=== PATIENT | female | born 2005 | race Caucasian/White ===

== ENCOUNTER 2025-01-27 16:46 | Emergency (ER) | payer SELFPAY ==
[2025-01-27 17:07] VITALS: BP 143/91; PULSE 69; RESP 16; TEMP 36.8; O2SAT 98
--- OUTSIDE RECORDS SUMMARY | 2025-01-27 17:17 | XMS_ITS | Encounter Summary ---
Author Organization [facility] Address [address] [place] [address] Care Team Providers Care Ball Maker Name Role Phone Aby Almaguer MD Primary Care Provider +1- [phone] Encounter Details Date Type Department Care Team (Latest Contact Info) Description 2004 Outpatient Historical [facility] Medicine [address] [phone] Maria Fernanda Lundberg MD [address] [place] [phone] EYAL HIP DEFORMITY NEC (Primary Dx) Social History Tobacco Use Types Packs/Day Years Used Date Smoking Tobacco: Never Assessed Comments Unknown Sex and Gender Information Value Date Recorded Sex Assigned at Not on file Legal Sex Female 3:16 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
--- OUTSIDE RECORDS SUMMARY | 2025-01-27 17:17 | XMS_ITS | Encounter Summary ---
Author Organization [facility] Address [address] [place] [address] Care Team Providers Care Discharge Planner Name Role Phone Aby Almaguer MD Primary Care Provider +1- [phone] Encounter Details Date Type Department Care Team (Latest Contact Info) Description 2004 Outpatient Historical [facility] Medicine [address] [address] Christian Cabral MD [address] [place] [phone] Routine child health exam (Primary Dx) Social History Tobacco Use Types Packs/Day Years Used Date Smoking Tobacco: Never Assessed Comments Unknown Sex and Gender Information Value Date Recorded Sex Assigned at Not on file Legal Sex Female 3:16 AM 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
--- OUTSIDE RECORDS SUMMARY | 2025-01-27 17:17 | XMS_ITS | Encounter Summary ---
Author Organization [facility] Address [address] [place] [address] Care Team Providers Care Recycle Coordinator Name Role Phone Aby Almaguer MD Primary Care Provider +1- [phone] Encounter Details Date Type Department Care Team (Latest Contact Info) Description 2004 Outpatient Historical [facility] Medicine [place] [address] [address] Christian Cabral MD [address] [place] [phone] DIARRHEA NOS (Primary Dx) Social History Tobacco Use Types Packs/Day Years Used Date Smoking Tobacco: Never Assessed Comments Unknown Sex and Gender Information Value Date Recorded Sex Assigned at Not on file Legal Sex Female 3:16 AM 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
--- OUTSIDE RECORDS SUMMARY | 2025-01-27 17:17 | XMS_ITS | Encounter Summary ---
Author Organization [facility] Address [address] [place] [address] Care Team Providers Care Rip Sawyer Name Role Phone Aby Almaguer MD Primary Care Provider +1- [phone] Encounter Details Date Type Department Care Team (Latest Contact Info) Description 08/07/2005 Outpatient Historical [facility] Family Medicine [address] [address] Kae Chirinos MD [facility] [place] [address] Unspecified Otitis Media (Primary Dx) Social History Tobacco Use Types Packs/Day Years Used Date Smoking Tobacco: Never Assessed Comments Unknown Sex and Gender Information Value Date Recorded Sex Assigned at Not on file Legal Sex Female 3:16 AM MIDDLEWARE SOLUTIONS ARCHITECT Gender Identity Not on file Sexual Orientation Not on file documented as of this encounter Plan of Treatment Not on file documented as of this encounter Visit Diagnoses Diagnosis Unspecified otitis media- Primary documented in this encounter Care Teams Rip Sawyer Relationship Specialty Start Date End Date Aby Almaguer MD PCP - General Family Practice 05/04/14 documented as of this encounter
--- OUTSIDE RECORDS SUMMARY | 2025-01-27 17:17 | XMS_ITS | Encounter Summary ---
Author Organization [facility] Address [address] [place] [address] Care Team Providers Care A And P Technician Name Role Phone Aby Almaguer MD Primary Care Provider +1- [phone] Encounter Details Date Type Department Care Team (Latest Contact Info) Description 2004 Outpatient Historical [facility] Medicine [address] [phone] Maria Fernanda Lundberg MD [address] [place] [phone] OTITIS MEDIA NOS (Primary Dx); NASAL & SINUS DIS NEC Social History Tobacco Use Types Packs/Day Years Used Date Smoking Tobacco: Never Assessed Comments Unknown Sex and Gender Information Value Date Recorded Sex Assigned at Not on file Legal Sex Female 3:16 AM HUMAN SERVICES SUPERVISOR Gender Identity Not on file Sexual Orientation Not on file documented as of this encounter Plan of Treatment Not on file documented as of this encounter Visit Diagnoses Diagnosis Unspecified otitis media- Primary Nasal/sinus dis NEC Other diseases of nasal cavity and sinuses documented in this encounter Care Teams A And P Technician Relationship Specialty Start Date End Date Aby Almaguer MD PCP - General Family Practice 05/04/14 documented as of this encounter
--- OUTSIDE RECORDS SUMMARY | 2025-01-27 17:17 | XMS_ITS | Encounter Summary ---
Author Organization [facility] Address [address] [place] [address] Care Team Providers Care Bleach Machine Operator Name Role Phone Aby Almaguer MD Primary Care Provider +1- [phone] Encounter Details Date Type Department Care Team (Late st Contact Info) Description 05/22/2007 Outpatient Historical [facility] Ear, Nose and Throat [address] [place] [phone] Edmundo Walker MD NO ADDRESS ON FILE Social History Tobacco Use Types Packs/Day Years Used Date Smoking Tobacco: Never Assessed Comments Unknown Sex and Gender Information Value Date Recorded Sex Assigned at Not on file Legal Sex Female 3:16 AM DIRECTOR OF GROUP COUNSELING PROGRAM Gender Identity Not on file Sexual Orientation Not on file documented as of this encounter Plan of Treatment Not on file documented as of this encounter Visit Diagnoses Not on filedocumented in this encounter Care Teams Bleach Machine Operator Relationship Specialty Start Date End Date Aby Almaguer MD PCP - General Family Practice 05/04/14 documented as of this encounter
--- OUTSIDE RECORDS SUMMARY | 2025-01-27 17:17 | XMS_ITS | Encounter Summary ---
Author Organization [facility] Address [address] [place] [address] Care Team Providers Care Cartographic Designer Name Role Phone Aby Almaguer MD Primary Care Provider +1- [phone] Encounter Details Date Type Department Care Team (Latest Contact Info) Description 01/10/2005 Outpatient Historical [facility] Medicine [address] [phone] Maria Fernanda Lundberg MD [address] [place] [phone] Routine child health exam (Primary Dx) Social History Tobacco Use Types Packs/Day Years Used Date Smoking Tobacco: Never Assessed Comments Unknown Sex and Gender Information Value Date Recorded Sex Assigned at Not on file Legal Sex Female 3:16 AM INTENSIVE CARE MEDICINE SPECIALIST Gender Identity Not on file Sexual Orientation Not on file documented as of this encounter Plan of Treatment Not on file documented as of this encounter Visit Diagnoses Diagnosis Routine child health exam- Primary Routine infant or child health check documented in this encounter Care Teams Cartographic Designer Relationship Specialty Start Date End Date Aby Almaguer MD PCP - General Family Practice 05/04/14 documented as of this encounter
--- OUTSIDE RECORDS SUMMARY | 2025-01-27 17:17 | XMS_ITS | Encounter Summary ---
Author Organization [facility] Address [address] [place] [address] Care Team Providers Care Recovery Agent Name Role Phone Aby Almaguer MD Primary Care Provider +1- [phone] Encounter Details Date Type Department Care Team (Latest Contact Info) Description 2004 Outpatient Historical [facility] Medicine [address] [phone] Christian Cabral MD [address] [place] [phone] Routine child health exam (Primary Dx) Social History Tobacco Use Types Packs/Day Years Used Date Smoking Tobacco: Never Assessed Comments Unknown Sex and Gender Information Value Date Recorded Sex Assigned at Not on file Legal Sex Female 3:16 AM 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
--- OUTSIDE RECORDS SUMMARY | 2025-01-27 17:17 | XMS_ITS | Encounter Summary ---
Author Organization [facility] Address [address] [place] [address] Care Team Providers Care Carpenter Helper Maintenance Name Role Phone Aby Almaguer MD Primary Care Provider +1- [phone] Encounter Details Date Type Department Care Team (Latest Contact Info) Description 2004 Outpatient Historical [facility] Medicine [address] [phone] Maria Fernanda Lundberg MD [address] [place] [phone] Routine child health exam (Primary Dx) Social History Tobacco Use Types Packs/Day Years Used Date Smoking Tobacco: Never Assessed Comments Unknown Sex and Gender Information Value Date Recorded Sex Assigned at Not on file Legal Sex Female 3:16 AM LIFE SKILLS TEACHER Gender Identity Not on file Sexual Orientation Not on file documented as of this encounter Plan of Treatment Not on file documented as of this encounter Visit Diagnoses Diagnosis Routine child health exam- Primary Routine infant or child health check documented in this encounter Care Teams Carpenter Helper Maintenance Relationship Specialty Start Date End Date Aby Almaguer MD PCP - General Family Practice 05/04/14 documented as of this encounter
--- OUTSIDE RECORDS SUMMARY | 2025-01-27 17:17 | XMS_ITS | Encounter Summary ---
Author Organization [facility] Address [address] [place] [address] Care Team Providers Care Manager Plan Name Role Phone Aby Almaguer MD Primary Care Provider +1- [phone] Encounter Details Date Type Department Care Team (Latest Contact Info) Description [address] [facility] Services [address] [place] [phone] Maria Fernanda Lundberg MD [address] [place] [address] JOINT SYMPTOM NEC-PELVIS (Primary Dx) Social History Tobacco Use Types Packs/Day Years Used Date Smoking Tobacco: Never Assessed Comments Unknown Sex and Gender Information Value Date Recorded Sex Assigned at Not on file Legal Sex Female 3:16 AM SENIOR ENGINEERING MANAGER Gender Identity Not on file Sexual Orientation Not on file documented as of this encounter Plan of Treatment Not on file documented as of this encounter Visit Diagnoses Diagnosis Other symptoms referable to pelvic joint- Primary documented in this encounter Care Teams Manager Plan Relationship Specialty Start Date End Date Aby Almaguer MD PCP - General Family Practice 05/04/14 documented as of this encounter
--- OUTSIDE RECORDS SUMMARY | 2025-01-27 17:18 | XMS_ITS | Encounter Summary ---
Author Organization [facility] Address [address] [place] [address] Care Team Providers Care Client Strategist Name Role Phone Aby Almaguer MD Primary Care Provider +1- [phone] Encounter Details Date Type Department Care Team (Latest Contact Info) Description 03/03/2006 Outpatient Historical [facility] Family Medicine [address] [address] Julien Denton, GAMING MANAGER [address] [place] [address] Unspecified Otitis Media (Primary Dx) Social History Tobacco Use Types Packs/Day Years Used Date Smoking Tobacco: Never Assessed Comments Unknown Sex and Gender Information Value Date Recorded Sex Assigned at Not on file Legal Sex Female 3:16 AM PUMP HOUSE OPERATOR Gender Identity Not on file Sexual Orientation Not on file documented as of this encounter Plan of Treatment Not on file documented as of this encounter Visit Diagnoses Diagnosis Unspecified otitis media- Primary documented in this encounter Care Teams Client Strategist Relationship Specialty Start Date End Date Aby Almaguer MD PCP - General Family Practice 05/04/14 documented as of this encounter
--- OUTSIDE RECORDS SUMMARY | 2025-01-27 17:18 | XMS_ITS | Encounter Summary ---
Author Organization [facility] Address [address] [place] [address] Care Team Providers Care Foot Press Operator Name Role Phone Aby Almaguer MD Primary Care Provider +1- [phone] Encounter Details Date Type Department Care Team (Latest Contact Info) Description 04/04/2005 Outpatient Historical [facility] Medicine [address] [phone] Maria Fernanda Lundberg MD [address] [place] [phone] Routine child health exam (Primary Dx) Social History Tobacco Use Types Packs/Day Years Used Date Smoking Tobacco: Never Assessed Comments Unknown Sex and Gender Information Value Date Recorded Sex Assigned at Not on file Legal Sex Female 3:16 AM HAND SPLITTER Gender Identity Not on file Sexual Orientation Not on file documented as of this encounter Plan of Treatment Not on file documented as of this encounter Visit Diagnoses Diagnosis Routine child health exam- Primary Routine infant or child health check documented in this encounter Care Teams Foot Press Operator Relationship Specialty Start Date End Date Aby Almaguer MD PCP - General Family Practice 05/04/14 documented as of this encounter
--- OUTSIDE RECORDS SUMMARY | 2025-01-27 17:18 | XMS_ITS | Encounter Summary ---
Author Organization [facility] Address [address] [place] [address] Care Team Providers Care Air Moving Technician Name Role Phone Aby Almaguer MD Primary Care Provider +1- [phone] Encounter Details Date Type Department Care Team (Latest Contact Info) Description 04/25/2006 Outpatient Historical [facility] Ear, Nose and Throat [address] [place] [phone] Mohit Baires AU.D NO ADDRESS ON FILE Dysfunct Eustachian Tube (Primary Dx); Unspecified Conductive Hearing Loss Social History Tobacco Use Types Packs/Day Years Used Date Smoking Tobacco: Never Assessed Comments Unknown Sex and Gender Information Value Date Recorded Sex Assigned at Not on file Legal Sex Female 3:16 AM FORESTRY ENGINEER Gender Identity Not on file Sexual Orientation Not on file documented as of this encounter Plan of Treatment Not on file documented as of this encounter Visit Diagnoses Diagnosis Dysfunct eustachian tube- Primary Dysfunction of Eustachian tube Unspecified conductive hearing loss documented in this encounter Care Teams Air Moving Technician Relationship Specialty Start Date End Date Aby Almaguer MD PCP - General Family Practice 05/04/14 documented as of this encounter
--- OUTSIDE RECORDS SUMMARY | 2025-01-27 17:18 | XMS_ITS | Encounter Summary ---
Author Organization [facility] Address [address] [place] [address] Care Team Providers Care Mica Plate Layer Hand Name Role Phone Aby Almaguer MD Primary Care Provider +1- [phone] Encounter Details Date Type Department Care Team (Latest Contact Info) Description 2004 Outpatient Historical [facility] Medicine [address] [phone] Maria Fernanda Lundberg MD [address] [place] [phone] Routine child health exam (Primary Dx) Social History Tobacco Use Types Packs/Day Years Used Date Smoking Tobacco: Never Assessed Comments Unknown Sex and Gender Information Value Date Recorded Sex Assigned at Not on file 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
--- OUTSIDE RECORDS SUMMARY | 2025-01-27 17:18 | XMS_ITS | Encounter Summary ---
Author Organization [facility] Address [address] [place] [address] Care Team Providers Care Tortilla Maker Name Role Phone Aby Almaguer MD Primary Care Provider +1- [phone] Encounter Details Date Type Department Care Team (Late st Contact Info) Description 04/22/2007 Outpatient Historical [facility] Medicine [address] [address] Julien Denton, RELIGION INSTRUCTOR [address] [place] [address] Social History Tobacco Use Types Packs/Day Years Used Date Smoking Tobacco: Never Assessed Comments Unknown Sex and Gender Information Value Date Recorded Sex Assigned at Not on file Legal Sex Female 3:16 AM MINER Gender Identity Not on file Sexual Orientation Not on file documented as of this encounter Progress Notes * Julien Denton NP - 04/22/2007 12:00 AM CST Patient Name: Raquel Quintanilla DOS: 04/22/2007 : 2005 SUBJECTIVE: Raquel comes in for cold symptoms, cough, ear hurts. Nurses documentation noted. Review of systems, social history and chart review performed on health questionnaire. OBJECTIVE: HEENT: Head is normocephalic. TMs are clear and lucent bilaterally. Nasal passages are patent. Intraoral exam is pink and moist. Posterior oropharynx is within normal limits. NECK: Supple. Thyroid is not palpated. No cervical lymphadenopathy is noted. HEART: Regular rate and rhythm with no murmur. LUNGS: Clear to auscultation bilaterally. ABDOMEN: Soft, rounded and nontender to palpation. Bowel sounds are present. EXTREMITIES: Without defect. LABORATORY DATA: Negative rapid strep. ASSESSMENT: Viral syndrome. PLAN: Supportive care. Followup as needed. Julien Denton RN, POWER PLANT OPERATORS SUPERVISOR Maria Fernanda Lundberg M.D. [facility] Electronically Signed by Julien Denton RN 05/13/2007 14:31 , 8:24 A P, 580 Document #: [id number] cc: R documented in this encounter Plan of Treatment Not on file documented as of this encounter Visit Diagnoses Not on filedocumented in this encounter Care Teams Tortilla Maker Relationship Specialty Start Date End Date Aby Almaguer MD PCP - [facility] Family Practice 05/04/14 documented as of this encounter
--- OUTSIDE RECORDS SUMMARY | 2025-01-27 17:18 | XMS_ITS | Encounter Summary ---
Author Organization [facility] Address [address] [place] [address] Care Team Providers Care Well Site Drilling Engineer Name Role Phone Aby Almaguer MD Primary Care Provider +1- [phone] Encounter Details Date Type Department Care Team (Latest Contact Info) Description 04/25/2006 Outpatient [facility] Ear, Nose and Throat [address] [place] [phone] Edmundo Walker MD NO ADDRESS ON FILE Dysfunct Eustachian Tube (Primary Dx); Other and Unspecified Chronic Nonsuppurative Otitis Media; Unspecified Conductive Hearing Loss; Chronic Rhinitis Social History Tobacco Use Types Packs/Day Years Used Date Smoking Tobacco: Never Assessed Comments Unknown Sex and Gender Information Value Date Recorded Sex Assigned at Not on file Legal Sex Female 3:16 AM BREASTER Gender Identity Not on file Sexual Orientation Not on file documented as of this encounter Plan of Treatment Not on file documented as of this encounter Visit Diagnoses Diagnosis Dysfunct eustachian tube- Primary Dysfunction of Eustachian tube Other and unspecified chronic nonsuppurative otitis media Unspecified conductive hearing loss Chronic rhinitis documented in this encounter Care Teams Well Site Drilling Engineer Relationship Specialty Start Date End Date Aby Almaguer MD PCP - General Family Practice 05/04/14 documented as of this encounter
--- OUTSIDE RECORDS SUMMARY | 2025-01-27 17:18 | XMS_ITS | Encounter Summary ---
Author Organization [facility] Address [address] [place] [address] Care Team Providers Care Oracle Fusion Middleware Developer Name Role Phone Aby Almaguer MD Primary Care Provider +1- [phone] Encounter Details Date Type Department Care Team (Latest Contact Info) Description 12/25/2006 Outpatient Historical 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
--- OUTSIDE RECORDS SUMMARY | 2025-01-27 17:18 | XMS_ITS | Encounter Summary ---
Author Organization [facility] Address [address] [place] [address] Care Team Providers Care Wad Compressor Operator Adjuster Name Role Phone Aby Almaguer MD Primary Care Provider +1- [phone] Encounter Details Date Type Department Care Team (Latest Contact Info) Description 07/08/2005 Outpatient Historical [facility] Medicine [address] [address] Maria Fernanda Lundberg MD [address] [place] [phone] Routine Child Health Exam (Primary Dx) Social History Tobacco Use Types Packs/Day Years Used Date Smoking Tobacco: Never Assessed Comments Unknown Sex and Gender Information Value Date Recorded Sex Assigned at Not on file Legal Sex Female 3:16 AM WHEEL SHOP SUPERVISOR Gender Identity Not on file Sexual Orientation Not on file documented as of this encounter Plan of Treatment Not on file documented as of this encounter Visit Diagnoses Diagnosis Routine child health exam- Primary Routine infant or child health check documented in this encounter Care Teams Wad Compressor Operator Adjuster Relationship Specialty Start Date End Date Aby Almaguer MD PCP - General Family Practice 05/04/14 documented as of this encounter
--- OUTSIDE RECORDS SUMMARY | 2025-01-27 17:18 | XMS_ITS | Encounter Summary ---
Author Organization [facility] Address [address] [place] [address] Care Team Providers Care Dry Cleaning Checker Name Role Phone Aby Almaguer MD Primary Care Provider +1- [phone] Encounter Details Date Type Department Care Team (Latest Contact Info) Description 03/21/2006 Outpatient Historical [facility] Family Medicine [address] [address] Julien Denton, SIDE LASTER [employer] [address] [place] [address] Unspecified Otitis Media (Primary Dx) Social History Tobacco Use Types Packs/Day Years Used Date Smoking Tobacco: Never Assessed Comments Unknown Sex and Gender Information Value Date Recorded Sex Assigned at Not on file Legal Sex Female 3:16 AM DRUG ABUSE PROGRAM COORDINATOR Gender Identity Not on file Sexual Orientation Not on file documented as of this encounter Plan of Treatment Not on file documented as of this encounter Visit Diagnoses Diagnosis Unspecified otitis media- Primary documented in this encounter Care Teams Dry Cleaning Checker Relationship Specialty Start Date End Date Aby Almaguer MD PCP - General Family Practice 05/04/14 documented as of this encounter
--- OUTSIDE RECORDS SUMMARY | 2025-01-27 17:18 | XMS_ITS | Encounter Summary ---
Author Organization [facility] Address [address] [place] [address] Care Team Providers Care Chief Technician Name Role Phone Aby Almaguer MD Primary Care Provider +1- [phone] Encounter Details Date Type Department Care Team (Latest Contact Info) Description 07/09/2006 Outpatient Historical [facility] Medicine [address] [address] Kae Chirinos MD [facility] [place] [address] Unspecified Conjunctivitis (Primary Dx) Social History Tobacco Use Types Packs/Day Years Used Date Smoking Tobacco: Never Assessed Comments Unknown Sex and Gender Information Value Date Recorded Sex Assigned at Not on file 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
--- OUTSIDE RECORDS SUMMARY | 2025-01-27 17:18 | XMS_ITS | Encounter Summary ---
Author Organization [facility] Address [address] [place] [address] Care Team Providers Care Gps Navigation Installer Name Role Phone Aby lAmaguer MD Primary Care Provider +1- [phone] Encounter Details Date Type Department Care Team (Latest Contact Info) Description 12/18/2006 Outpatient Historical [facility] Medicine [place] [address] [address] Christian Cabral MD [address] [place] [phone] Feeding Problem (Primary Dx) Social History Tobacco Use Types Packs/Day Years Used Date Smoking Tobacco: Never Assessed Comments Unknown Sex and Gender Information Value Date Recorded Sex Assigned at Not on file 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
--- OUTSIDE RECORDS SUMMARY | 2025-01-27 17:18 | XMS_ITS | Encounter Summary ---
Author Organization [facility] Address [address] [place] [address] Care Team Providers Care Coding Compliance Specialist Name Role Phone Aby Almaguer MD Primary Care Provider +1- [phone] Encounter Details Date Type Department Care Team (Latest Contact Info) Description 05/12/2006 Outpatient Historical [facility] [place] [phone] Edmundo Walker MD NO ADDRESS ON FILE Dysfunct Eustachian Tube (Primary Dx); Unspecified Otitis Media; Other and Unspecified Chronic Nonsuppurative Otitis Media Social History Tobacco Use Types Packs/Day Years Used Date Smoking Tobacco: Never Assessed Comments Unknown Sex and Gender Information Value Date Recorded Sex Assigned at Not on file 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
--- OUTSIDE RECORDS SUMMARY | 2025-01-27 17:18 | XMS_ITS | Clinical Summary ---
Author Organization [facility] Address [address] [facility] Attn: [place] [address] Care Team Providers Care Frozen Pie Maker Name Role Phone Johnathan Grey MD Primary Care Provider [phone] Allergies Active Allergy Reactions Criticality Noted Date Comments Sulfa (Sulfonamide Antibiotics) Rash Medium 04/14 Medications cetirizine (ZyrTEC) 10 mg tablet Take 10 mg by mouth daily. Active medroxyPROGESTERo ne (DEPO-PROVERA) 150 mg/mL SuspensionIndicat ions:Encounter for initial prescription of injectable contraceptive Inject 1 mL (150 mg) by intramuscular injection every 90 days. 1 mL 3 06/13/19 24 Active Hospital, Clinic, or Other Facility Administered Medication Ordered Dose Route Frequency Start Date End Date Status medroxyPROGESTERone (DEPO-PROVERA) 150 mg/mL injection 150 mgIndications:Encounter for surveillance of injectable contraceptive 150 mg IM EVERY 90 DAYS 09/09/2023 Active Active Problems No known active problems Resolved Problems Problem Noted Date Diagnosed Date Resolved Date Hemangioma NOS 05/28/2017 Twin , mate liveborn, born in hospital 03/29/2017 Immunizations Immunization Administration Dates Next Due (ADACEL/BOOSTRIX)(10 YR UP) TDAP VACCINE, 0.5ML, IM 05/11/2017 (GARDASIL 9)(9-45 YRS) HUMAN PAPILLOMAVIRUS VACCINE, TYPES 6, 11, 16, 18, 31, 33, 45, 52, 58, NONAVALENT (9VHPV), 2 OR 3 DOSE, IM 11/25/2017,05/27/2017 (HAVRIX/VAQTA)(12 MO-18 YRS) HEPATITIS A VACCINE 0.5 ML PED/ADOL 2 DOSE, IM 11/29/2014,05/31/2014 (INFANRIX)(6 WKS-6 YRS) DIPT HERIA, TETANUS TOXOIDS, AND ACCELLULAR PERTUSSIS VACCINE (DTAP), 0.5 ML IM 09/21/2009 (IPOL)(6 WKS AND UP) POLIOVI NILA VACCINE, INACTIVATED (IPV), 3 DOSE, SUBCUT OR IM 09/21/2009 (M-M-R II/PRIORIX)(12 MO UP) MEASLES, MUMPS AND RUBELLA VIRUS VACCINE, 0.5 ML IM/SUBCUT 09/21/2009,04/04/2005 (MENVEO)(1 VIAL/2 VIAL)(10-5 5 YRS/2 MOS-55 YRS) MENINGOCOCCAL ACYW OLIGOSACCHARIDE CONJUGATE VACCINE, (PF) IM 05/27/2017 (PEDIARIX)(6 WKS-6 YRS) DIPT HERIA, TETANUS TOXOIDS, ACELLULAR PERTUSSIS, HEPATITIS B, AND INACTIVATED POLIOVIRUS VACCINE ([id number]), 0.5ML, IM 2004,2004,2004 (VARIVAX)(12 MOS UP)VARICELL A VIRUS VACCINE (PF) 0.5 ML, SUB CUT 09/21/2009,04/04/2005 Dt Dtp Dtap Vaccine 07/08/2005, 5,2004,05/2004 HIB, Unspecified Formulation 04/04/2005, 2004,2004,05/2004 Hepatitis A Vaccine Ped Adol IM 2 Dose VFC 11/29/2014,05/31/2014 Hepatitis B Vaccine 2004,2004,2004 INFLUENZA VACCINE QUADRIVALE NT 3 YR UP PF IM 05/27/2017,02/28/2015,02/17/2014 IPV/OPV 2004,2004,2004 Meningococcal A Conjugate Vaccine IM 05/27/2017 Pneumococcal 7-valent conjug ate vaccine IM 07/08/2005,2004,2004,05/2004 Family History Medical History Relation Name Comments No Known Problems Mother Relation Name Status Comments Father Alive Mother Alive Social History Tobacco Use Types Packs/Day Years Used Date Smoking Tobacco: Never Smokeless Tobacco: Never Tobacco Cessation:Counseling Given: Not Answered Alcohol Use Standard Drinks/Week Comments No 0 (1 standard drink = 0.6 oz pur e alcohol) Adolescent Education Answer Date Record ed Getting School Help Needed Not on file 11/13 Comments No Sex and Gender Information Value Date Recorded Sex Assigned at Not on file Legal Sex Female 10:11 AM WAREHOUSE TEAM LEADER Gender Identity Not on file Sexual Orientation Not on file Last Filed Vital Signs Vital Sign Reading Time Taken Comments Blood Pressure 110/68 06/09/2023 11:34 AM WAREHOUSE TEAM LEADER Pulse 98 06/09/2023 11:34 AM WAREHOUSE TEAM LEADER Temperature 37.1 C (98.7 F) 06/09/2023 11:34 AM WAREHOUSE TEAM LEADER Respiratory Rate 16 06/09/2023 11:34 AM WAREHOUSE TEAM LEADER Oxygen Saturation 99% 06/09/2023 11:34 AM WAREHOUSE TEAM LEADER Inhaled Oxygen Concentration - - Weight 57 kg (125 lb 9.6 oz) 06/09/2023 11:34 AM WAREHOUSE TEAM LEADER Height 167.6 cm (5' 6 ) 06/09/2023 11:34 AM WAREHOUSE TEAM LEADER Body Mass Index 20.27 06/09/2023 11:34 AM WAREHOUSE TEAM LEADER Plan of Treatment Health Maintenance Due Date Last Done Comments CHLAMYDIA SCREENING (ANNUAL) 11-24 YEARS 2015 INFLUENZA VACCINE (#1) 2024 8, 02/28/2015, 02/17/2014 DTAP/TDAP/TD VACCINES (7 - T d or Tdap) 05/11/2027 05/11/2017, 09/21/2009, 07/08/2005, Additional history exists HEPATITIS B VACCINES Completed 2004, 2004, 2004, Additional history exists HPV VACCINES Completed 11/25/2017, 05/27/2017 Care Teams Frozen Pie Maker Relationship Specialty Start Date End Date Johnathan Grey MD [address] [place] [phone] PCP - General Family Practice 06/09/23
--- OUTSIDE RECORDS SUMMARY | 2025-01-27 17:18 | XMS_ITS | Clinical Summary ---
Author Organization [facility] Address [address] [place] [address] Care Team Providers Care Lining Parts Sewer Name Role Phone Aby Almaguer MD Primary Care Provider +1- [phone] Allergies Active Allergy Reactions Criticality Noted Date Comments Sulfa (Sulfonamide Antibiotics) Rash Medium 04/14 Medications No known medications Active Problems No known active problems Resolved Problems Problem Noted Date Diagnosed Date Resolved Date Twin , mate liveborn, born in hospital 03/29/2017 Hemangioma NOS 05/28/2017 Immunizations Immunization Administration Dates Next Due (ADACEL/BOOSTRIX)(10 [...] PERTUSSIS, HEPATITIS B, AND INACTIVATED POLIOVIRUS VACCINE ([id number]), 0.5ML, IM 2004,2004,2004 (VARIVAX)(12 MOS UP)VARICELL A [...] Pneumococcal 7-valent conjug ate vaccine IM 07/08/2005,2004,2004,05/2004 Social History Tobacco Use Types Packs/Day Years Used Date Smoking Tobacco: Never Smokeless Tobacco: Never Alcohol Use Standard Drinks/Week Comments No 0 (1 standard drink = 0.6 oz pur e alcohol) Comments No Sex and Gender Information Value Date Recorded Sex Assigned at Not on file Legal Sex Female 3:16 AM TERRITORY SERVICE REPRESENTATIVE Gender Identity Not on file Sexual Orientation Not on file Last Filed Vital Signs Vital Sign Reading Time Taken Comments Blood Pressure 98/54 05/27/2017 3:55 PM TERRITORY SERVICE REPRESENTATIVE Pulse 82 05/27/2017 3:55 PM TERRITORY SERVICE REPRESENTATIVE Temperature 36.8 C (98.2 F) 05/27/2017 3:55 PM TERRITORY SERVICE REPRESENTATIVE Respiratory Rate 18 05/27/2017 3:55 PM TERRITORY SERVICE REPRESENTATIVE Oxygen Saturation 97% 05/27/2017 3:55 PM TERRITORY SERVICE REPRESENTATIVE Inhaled Oxygen Concentration - - Weight 53.7 kg (118 lb 6 oz) 05/27/2017 3:55 PM TERRITORY SERVICE REPRESENTATIVE Height 163.8 cm (5' 4.5 ) 05/27/2017 3:55 PM TERRITORY SERVICE REPRESENTATIVE Body Mass Index 20.01 05/27/2017 3:55 PM TERRITORY SERVICE REPRESENTATIVE Plan of Treatment Health Maintenance Due Date Last Done Comments CHLAMYDIA SCREENING (ANNUAL) 11-24 YEARS 2015 INFLUENZA VACCINE (#1) 2024 8, 02/28/2015, 02/17/2014 DTAP/TDAP/TD VACCINES (7 - T d or Tdap) 05/11/2027 05/11/2017, 09/21/2009, 07/08/2005, Additional history exists HEPATITIS B VACCINES Completed 2004, 2004, 2004, Additional history exists HPV VACCINES Completed 11/25/2017, 05/27/2017 Insurance [facility] Care Teams Lining Parts Sewer Relationship Specialty Start Date End Date Aby Almaguer MD PCP - General Family Practice 05/04/14
--- OUTSIDE RECORDS SUMMARY | 2025-01-27 17:18 | XMS_ITS | Encounter Summary ---
Author Organization [facility] Address [address] [place] [address] Care Team Providers Care Division Leader Name Role Phone Aby Almaguer MD Primary Care Provider +1- [phone] Encounter Details Date Type Department Care Team (Latest Contact Info) Description 10/07/2005 Outpatient Historical [facility] Medicine [address] [address] Maria Fernanda Lundberg MD [address] [place] [phone] Routine Child Health Exam (Primary Dx) Social History Tobacco Use Types Packs/Day Years Used Date Smoking Tobacco: Never Assessed Comments Unknown Sex and Gender Information Value Date Recorded Sex Assigned at Not on file 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
--- OUTSIDE RECORDS SUMMARY | 2025-01-27 17:18 | XMS_ITS | Encounter Summary ---
Author Organization [facility] Address [address] [place] [address] Care Team Providers Care Laser Beam Cutter Name Role Phone Aby Almaguer MD Primary Care Provider +1- [phone] Encounter Details Date Type Department Care Team (Latest Contact Info) Description 01/02/2006 Outpatient Historical [facility] Medicine [address] [address] Kae Chirinos MD [facility] [place] [address] Acute Upper Respiratory Infections of Unspecified Site (Primary Dx) Social History Tobacco Use Types Packs/Day Years Used Date Smoking Tobacco: Never Assessed Comments Unknown Sex and Gender Information Value Date Recorded Sex Assigned at Not on file 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
--- OUTSIDE RECORDS SUMMARY | 2025-01-27 17:18 | XMS_ITS | Encounter Summary ---
Author Organization [facility] Address [address] [place] [address] Care Team Providers Care Injection Mold Tooling Technician Name Role Phone Aby Almaguer MD Primary Care Provider +1- [phone] Encounter Details Date Type Department Care Team (Latest Contact Info) Description 06/13/2006 Outpatient Historical [facility] Nose [facility] [address] [place] [phone] Edmundo Walker MD NO ADDRESS ON FILE Follow-Up Examination, Following Unspecified Surgery (Primary Dx) Social History Tobacco Use Types Packs/Day Years Used Date Smoking Tobacco: Never Assessed Comments Unknown Sex and Gender Information Value Date Recorded Sex Assigned at Not on file Legal Sex Female 3:16 AM RESEARCH PROJECT COORDINATOR Gender Identity Not on file Sexual Orientation Not on file documented as of this encounter Plan of Treatment Not on file documented as of this encounter Visit Diagnoses Diagnosis Follow-up examination, following unspecified surgery- Primary documented in this encounter Care Teams Injection Mold Tooling Technician Relationship Specialty Start Date End Date Aby Almaguer MD PCP - General Family Practice 05/04/14 documented as of this encounter
--- OUTSIDE RECORDS SUMMARY | 2025-01-27 17:18 | XMS_ITS | Encounter Summary ---
Author Organization [facility] Address [address] [place] [address] Care Team Providers Care Salesperson Trailers And Motor Homes Name Role Phone Aby Almaguer MD Primary Care Provider +1- [phone] Encounter Details Date Type Department Care Team (Latest Contact Info) Description 05/27/2006 Outpatient Historical [facility] Ear, Nose and Throat 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
--- OUTSIDE RECORDS SUMMARY | 2025-01-27 17:18 | XMS_ITS | Encounter Summary ---
Author Organization [facility] Address [address] [place] [address] Care Team Providers Care Book Salesman Name Role Phone Aby Almaguer MD Primary Care Provider +1- [phone] Encounter Details Date Type Department Care Team (Latest Contact Info) Description 02/05/2006 Outpatient Historical [facility] Family Medicine [address] [address] Kae Chirinos MD [facility] [place] [address] Unspecified Otitis Media (Primary Dx) Social History Tobacco Use Types Packs/Day Years Used Date Smoking Tobacco: Never Assessed Comments Unknown Sex and Gender Information Value Date Recorded Sex Assigned at Not on file 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
--- OUTSIDE RECORDS SUMMARY | 2025-01-27 17:18 | XMS_ITS | Encounter Summary ---
Author Organization [facility] Address [address] [place] [address] Care Team Providers Care Pre Certification Specialist Name Role Phone Aby Almaguer MD Primary Care Provider +1- [phone] Encounter Details Date Type Department Care Team (Latest Contact Info) Description 2004 Outpatient Historical [facility] Medicine [address] [address] Maria Fernanda Lundberg MD [address] [place] [phone] CONJUNCTIVITIS NOS (Primary Dx) Social History Tobacco Use Types Packs/Day Years Used Date Smoking Tobacco: Never Assessed Comments Unknown Sex and Gender Information Value Date Recorded Sex Assigned at Not on file Legal Sex Female 3:16 AM FAMILY ENGAGEMENT SPECIALIST Gender Identity Not on file Sexual Orientation Not on file documented as of this encounter Plan of Treatment Not on file documented as of this encounter Visit Diagnoses Diagnosis Conjunctivitis unspecified- Primary Conjunctivitis, unspecified documented in this encounter Care Teams Pre Certification Specialist Relationship Specialty Start Date End Date Aby Almaguer MD PCP - General Family Practice 05/04/14 documented as of this encounter
--- OUTSIDE RECORDS SUMMARY | 2025-01-27 17:18 | XMS_ITS | Encounter Summary ---
Author Organization [facility] Address [address] [place] [address] Care Team Providers Care Burlapper Name Role Phone Aby Almaguer MD Primary Care Provider +1- [phone] Encounter Details Date Type Department Care Team (Latest Contact Info) Description 01/22/2006 Outpatient Historical [facility] Medicine [address] [address] Julien Denton, INSURANCE ACCOUNT REPRESENTATIVE [address] [place] [address] Unspecified Otitis Media (Primary Dx); Acute Pharyngitis Social History Tobacco Use Types Packs/Day Years Used Date Smoking Tobacco: Never Assessed Comments Unknown Sex and Gender Information Value Date Recorded Sex Assigned at Not on file Legal Sex Female 3:16 AM AQUACULTURIST Gender Identity Not on file Sexual Orientation Not on file documented as of this encounter Plan of Treatment Not on file documented as of this encounter Visit Diagnoses Diagnosis Unspecified otitis media- Primary Acute pharyngitis documented in this encounter Care Teams Burlapper Relationship Specialty Start Date End Date Aby Almaguer MD PCP - General Family Practice 05/04/14 documented as of this encounter
--- OUTSIDE RECORDS SUMMARY | 2025-01-27 17:18 | XMS_ITS | Encounter Summary ---
Author Organization [facility] Address [address] [place] [address] Care Team Providers Care Field Spec Name Role Phone Aby Almaguer MD Primary Care Provider +1- [phone] Encounter Details Date Type Department Care Team (Latest Contact Info) Description 06/03/2005 Outpatient Historical [facility] Medicine [address] [phone] Maria Fernanda Lundberg MD [address] [place] [phone] OTITIS MEDIA NOS (Primary Dx) Social History Tobacco Use Types Packs/Day Years Used Date Smoking Tobacco: Never Assessed Comments Unknown Sex and Gender Information Value Date Recorded Sex Assigned at Not on file Legal Sex Female 3:16 AM VPK TEACHER Gender Identity Not on file Sexual Orientation Not on file documented as of this encounter Plan of Treatment Not on file documented as of this encounter Visit Diagnoses Diagnosis Unspecified otitis media- Primary documented in this encounter Care Teams Field Spec Relationship Specialty Start Date End Date Aby Almaguer MD PCP - General Family Practice 05/04/14 documented as of this encounter
--- OUTSIDE RECORDS SUMMARY | 2025-01-27 17:18 | XMS_ITS | Encounter Summary ---
Author Organization [facility] Address [address] [place] [address] Care Team Providers Care County Auditor Name Role Phone Aby Almaguer MD Primary Care Provider [phone]- [phone] Encounter Details Date Type Department Care Team (Latest Contact Info) Description 11/24/2006 Outpatient Historical [facility] Ear, Nose and Throat [address] [place] [phone] Evin Tyson, LINDSAY [address] [place] [address] Dysfunct Eustachian Tube (Primary Dx); Other and Unspecified Chronic Nonsuppurative Otitis Media Social History Tobacco Use Types Packs/Day Years Used Date Smoking Tobacco: Never Assessed Comments Unknown Sex and Gender Information Value Date Recorded Sex Assigned at Not on file Legal Sex Female 3:16 AM [employer]KER [employer] Gender Identity Not on file Sexual Orientation Not on file documented as of this encounter Plan of Treatment Not on file documented as of this encounter Visit Diagnoses Diagnosis Dysfunct eustachian tube- Primary Dysfunction of Eustachian tube Other and unspecified chronic nonsuppurative otitis media documented in this encounter Care Teams County Auditor Relationship Specialty Start Date End Date Aby Almaguer MD PCP - General Family Practice 05/04/14 documented as of this encounter
--- OUTSIDE RECORDS SUMMARY | 2025-01-27 17:18 | XMS_ITS | Encounter Summary ---
Author Organization [facility] Address [address] [place] [address] Care Team Providers Care Destaticizer Feeder Name Role Phone Aby Almaguer MD Primary Care Provider [phone]- [phone] Encounter Details Date Type Department Care Team (Latest Contact Info) Description 05/12/2006 Outpatient [facility] Ear, Nose and Throat [address] [place] [phone] Edmundo Walker MD NO ADDRESS ON FILE Dysfunct Eustachian Tube (Primary Dx); Unspecified Otitis Media; Other and Unspecified Chronic Nonsuppurative Otitis Media; Unspecified Conductive Hearing Loss Social History Tobacco Use Types Packs/Day Years Used Date Smoking Tobacco: Never Assessed Comments Unknown Sex and Gender Information Value Date Recorded Sex Assigned at Not on file Legal Sex Female 3:16 AM PRACTICE PROFESSIONAL Gender Identity Not on file Sexual Orientation Not on file documented as of this encounter Plan of Treatment Not on file documented as of this encounter Visit Diagnoses Diagnosis Dysfunct eustachian tube- Primary Dysfunction of Eustachian tube Unspecified otitis media Other and unspecified chronic nonsuppurative otitis media Unspecified conductive hearing loss documented in this encounter Care Teams Destaticizer Feeder Relationship Specialty Start Date End Date Aby Almaguer MD PCP - General Family Practice 05/04/14 documented as of this encounter
[2025-01-27 18:06] LABS: Hematocrit 38.7 % (36-47); Hemoglobin 13.20 g/dL (12.4-14.8); Mean Corpuscular HGB Conc 34.1 g/dL (30-55); Mean Corpuscular Hemoglobin 30.1 pg (27-33); Mean Corpuscular Volume 88.4 fl (85-98); Nucleated Red Blood Cells % 0 %; Platelet Count 267 10^3/cmm (157-399); Red Blood Count 4.38 10^6/uL (3.85-5.65); White Blood Count 6.93 10^3/uL (4.5-13.0)
[2025-01-27 18:10] LABS: Glucose Urine UA Negative (Normal); Nitrate Urine Negative (Negative); Specific Gravity, Urine 1.024 (1.005-1.030)
[2025-01-27 18:13] LABS: HCG Qualitative Urine. Negative (Negative)
[2025-01-27 18:24] LABS: Alanine Aminotransferase 11 U/L (0-33); Albumin Level 4.6 g/dL (3.5-5.2); Alkaline Phosphatase 64 U/L (35-105); Anion Gap 16.8 (5-19); Aspartate Amino Transferase 12 U/L (0-32); Blood Urea Nitrogen 8 mg/dL (6-20); Calcium 9.1 mg/dL (8.5-10.5); Carbon Dioxide 24 mmol/L (22-29); Chloride 104 mmol/L (98-107); Globulin 2.7 g/dL (1.3-4.6); Glucose 74 mg/dL (65-115); Osmolality Calculated 289 mOsm/kg (285-295); Potassium 3.8 mmol/L (3.5-5.1); Sodium 141 mmol/L (136-145); Total Protein 7.3 g/dL (6.6-8.7)
--- NOTE | 2025-01-27 19:10 | USR_ITS ---
PROCEDURE INFORMATION: Exam: US Pelvis, Complete, Non-Obstetric Exam date and time: 01/27/2025 8:09 PM Age: 19 years old Clinical indication: Menstruation abnormalities; Excessive menstruation; Additional info: Vanginal bleeding TECHNIQUE: Imaging protocol: Transabdominal pelvic nonobstetric ultrasound. Complete exam. Real time ultrasound with image documentation. COMPARISON: No relevant prior studies available. FINDINGS: Uterus: Uterus measures 8.2 x 5 x 4.6 cm for a total uterine volume of 99 cc. Endometrial thickness measures 9 mm. No fluid present in the endometrial cavity Right ovary/adnexa: Right ovary measures 3.8 x 4.5 x 2.8 cm for a total volume of 21 cc. The right ovary contains follicles largest is a 1.8 cm follicular cyst. Left ovary/adnexa: Left ovary measures 2.6 x 1.9 x 3.3 cm for a total volume of 8.4 cc. Intraperitoneal space: No intraperitoneal fluid. Urinary bladder: Normal. Other findings: No suspicious adnexal mass is present significant free fluid demonstrated. US/US pelvic complete* [id number] IMPRESSION: No suspicious adnexal mass is present
--- NOTE | 2025-01-27 19:11 | W.ED.FEMALGU ---
HPI - Female Genitourinary General: Chief complaint: Vaginal Bleeding Stated complaint: vaginal bleeding possible misscarriage Time Seen by Provider: 01/27/25 19:05 Source: patient Mode of arrival: ambulatory Limitations: no limitations History of Present Illness: 19-year-old female states that she had an episode of vaginal bleeding today states she had passed some tissue looking object as well and has had some mild bleeding since then. She states she has had some abdominal cramping denies any severe pain does receive Depo shots. She denies any fevers or discharge. Related Data Allergies Allergy/AdvReac Type Severity Reaction Status Date / Time sulfamethoxazole (From Allergy Unknown Verified 01/27/25 17:07 Bactrim) trimethoprim (From Bactrim) Allergy Unknown Verified 01/27/25 17:07 Review of Systems : Reports: vaginal bleeding [facility] PFSH: Social History Smoking and tobacco/nicotine status: current every day tobacco/nicotine user Physical Exam Const: COMMON NORMALS: no acute distress, patient oriented x3 and healthy appearing HENMT: COMMON NORMALS: normocephalic and atraumatic HEAD & SCALP: normocephalic and atraumatic Eye: COMMON NORMALS: conjunctivae normal CONJUNCTIVA: Yes conjunctivae normal Neck/C-Spine: COMMON NORMALS: full ROM and supple Chest: COMMONS NORMALS: normal inspection of the chest and normal palpation of entire chest wall Resp: COMMON NORMALS: normal respiratory effort, No retractions, No use of accessory muscles and clear to auscultation bilaterally AUSCULTATION: clear to auscultation bilaterally Cardio: COMMON NORMALS: regular rate, regular rhythm and No murmurs present (Cardio) RATE: regular rate RHYTHM: regular rhythm GI: COMMON NORMALS: Normal to inspection, nondistended, normoactive bowel sounds present, Soft to palpation, non-tender and no masses PALPATION: Yes Soft to palpation Extremity: COMMON NORMALS: normal to inspection and full ROM Neuro: COMMON NORMALS: patient oriented x3, moves all extremities and no focal motor deficits Psych: COMMON NORMALS: mental status grossly normal, Normal thought process present and cooperative THOUGHT PROCESS: Normal thought process present Skin: COMMON NORMALS: no rashes or lesions noted and no wounds GENERAL SKIN EXAM: no rashes or lesions noted Course Vital Signs: Vital signs: Vital Signs Temperature 98.2 F 01/27/25 17:07 Pulse Rate 64 01/27/25 20:22 Respiratory Rate 16 01/27/25 17:07 Blood Pressure 143/91 01/27/25 17:07 Pulse Oximetry 98 01/27/25 20:22 Oxygen Delivery Me thod Room Air 01/27/25 20:22 MDM - Female Medical Decision Making Patient presents with vaginal bleeding. Patient is not no signs of ectopic . Her hemoglobin white count here are normal no discharge no signs of any infection. Did do a pelvic ultrasound formal ultrasound that showed no acute abnormalities her bleeding has lessened she is stable for discharge informed her she needs a follow-up with her PCP I did go over all the results with her informed her to return if worsening she understands agrees to plan. Medical Records I reviewed the patient's medical records. Lab Data I reviewed the patient's lab results. 01/27/25 17:48 01/27/25 17:48 Radiology Impressions Pelvis Ultrasound 01/27/25 19:10 IMPRESSION: No suspicious adnexal mass is present Laboratory Results WBC 6.93 10^3/uL (4.5-13.0) 01/27/25 17:48 RBC 4.38 10^6/uL (3.85-5.65) 01/27/25 17:48 Hgb 13.20 g/dL (12.4-14.8) 01/27/25 17:48 Hct 38.7 % (36-47) 01/27/25 17:48 MCV 88.4 fl (85-98) 01/27/25 17:48 MCH 30.1 pg (27-33) 01/27/25 17:48 MCHC 34.1 g/dL (30-55) 01/27/25 17:48 RDW 12.1 % (12.1-15.1) 01/27/25 17:48 Plt Count 267 10^3/cmm (157-399) 01/27/25 17:48 MPV 9.4 fL (7.4-10.4) 01/27/25 17:48 Neut % (Auto) 52.7 % 01/27/25 17:48 Lymph % (Auto) 37.1 % 01/27/25 17:48 Arthur % (Auto) 7.8 % 01/27/25 17:48 Eos % (Auto) 1.7 % 01/27/25 17:48 Baso % (Auto) 0.6 % 01/27/25 17:48 Neut # (Auto) 3.65 10^3/uL (1.8-8.0) 01/27/25 17:48 Lymph # (Auto) 2.6 10^3/uL (1.5-6.5) 01/27/25 17:48 Arthur # (Auto) 0.5 10^3/uL (0.2-0.9) 01/27/25 17:48 Eos # (Auto) 0.1 10^3/uL (0.0-0.8) 01/27/25 17:48 Baso # (Auto) 0.0 10^3/uL (0.0-0.1) 01/27/25 17:48 Nucleated RBC % (auto) 0 % 01/27/25 17:48 Nucleated RBCs # 0.0 /100WBC 01/27/25 17:48 Sodium 141 mmol/L (136-145) 01/27/25 17:48 Potassium 3.8 mmol/L (3.5-5.1) 01/27/25 17:48 Chloride 104 mmol/L (98-107) 01/27/25 17:48 Carbon Dioxide 24 mmol/L (22-29) 01/27/25 17:48 Anion Gap 16.8 (5-19) 01/27/25 17:48 BUN 8 mg/dL (6-20) 01/27/25 17:48 Creatinine 0.6 mg/dL (0.5-0.9) 01/27/25 17:48 GFR Calculation 127.5 mL/min (90-130) 01/27/25 17:48 Glucose 74 mg/dL (65-115) 01/27/25 17:48 Calculated Osmolality 289 mOsm/kg (285-295) 01/27/25 17:48 Calcium 9.1 mg/dL (8.5-10.5) 01/27/25 17:48 Total Bilirubin 0.2 mg/dL (0.15-1.2) 01/27/25 17:48 AST 12 U/L (0-32) 01/27/25 17:48 ALT 11 U/L (0-33) 01/27/25 17:48 Alkaline Phosphatase 64 U/L (35-105) 01/27/25 17:48 Total Protein 7.3 g/dL (6.6-8.7) 01/27/25 17:48 Albumin 4.6 g/dL (3.5-5.2) 01/27/25 17:48 Globulin 2.7 g/dL (1.3-4.6) 01/27/25 17:48 HCG, Qual Negative (Negative) 01/27/25 17:15 Urine Color Yellow (Yellow) 01/27/25 17:15 Urine Appearance Turbid (CLEAR) A 01/27/25 17:15 Urine pH 7.5 (5-7) 01/27/25 17:15 Ur Specific Kite 1.024 (1.005-1.030) 01/27/25 17:15 Urine Protein Trace (Negative) A 01/27/25 17:15 Urine Glucose (UA) Negative (Normal) 01/27/25 17:15 Urine Ketones Negative (Negative) 01/27/25 17:15 Urine Blood 3+ (Negative) A 01/27/25 17:15 Urine Nitrate Negative (Negative) 01/27/25 17:15 Urine Bilirubin Negative (Negative) 01/27/25 17:15 Urine Urobilinogen 1.0 mg/dL (Negative) 01/27/25 17:15 Ur Leukocyte Esterase Negative (Negative) 01/27/25 17:15 Urine RBC >100 /hpf (0-2) H 01/27/25 17:15 Urine WBC 0-5 /hpf (0-5) 01/27/25 17:15 Ur Squamous Epith Cells 0-5 /hpf (0-5) 01/27/25 17:15 Amorphous Sediment Not Reportable 01/27/25 17:15 Urine Bacteria None seen /hpf (NONE) 01/27/25 17:15 Hyaline Casts 0-4 /lpf H 01/27/25 17:15 All radiology interpretation(s) finalized by discharge Discharge Plan Discharge Patient Disposition: Home Clinical Impression: Vaginal bleeding Condition: Stable Discharge Orders: Discharge ED (Routine); Ordered 01/27/25 Ordered By: Lucia Cotton Discharge Diet: Advance as tolerated Discharge Activity: Resume usual activity Patient Instructions: Abnormal (Dysfunctional) Uterine Bleeding (ED) Print Language: [place] Timorese Coding Level of Care Code ED Desktop Publishing Specialist for Srig Elias
[2025-01-27] MEDS: ondansetron hcl ODT 4 mg Tab PO (19:29)
[2025-01-27] MEDS: HYDROcodone-acetaminophen 5-325 mg Tablet 1 TAB PO (19:29)
[2025-01-27 20:22] VITALS: PULSE 64; O2SAT 98
== END 2025-01-27 21:35 | disposition home or self-care (01) ==
PROVIDERS: Physician Assistant; Emergency Provider Emergency Medicine
DX: N93.9 Abnormal uterine and vaginal bleeding, unspecified (principal); Z72.0 Tobacco use
CPT/HCPCS: 36415; 76856; 80053; 81001; 81025; 85025; 87086; 99284; J9999; Q0162

== ENCOUNTER → 2025-03-02 12:38 | Outpatient (BNVA) | payer SELFPAY | PROVIDERS: Visit Provider Nurse Practitioner Women's Health | DX: N93.9 Abnormal uterine and vaginal bleeding, unspecified (principal) | CPT/HCPCS: 82306; 82670; 83001; 83002; 83036; 83520; 83525; 84144; 84146; 84402; 84403; 84443; 84481 ==

== ENCOUNTER → 2025-03-16 14:14 | Outpatient (BNVA) | payer SELFPAY | PROVIDERS: Visit Provider Nurse Practitioner Women's Health | DX: N93.9 Abnormal uterine and vaginal bleeding, unspecified (principal); L70.0 Acne vulgaris | CPT/HCPCS: 82627; 84270 ==